=== PATIENT | male | born 1960 | race Caucasian/White ===

== ENCOUNTER 2017-06-30 13:07 | Emergency (ER) | payer MEDICAID, OTHER ==
[~2017-06-30] VITALS: Ht 167.6 cm; Wt 59.0 kg
[~2017-06-30 13:07] MED LIST: GABA100C9; HYDR-4683; MELO-41; OMEG300C5; OMEP20TA34; SIMV10TA84; TEMA15CA; TRAM50TA2
[2017-06-30 13:28] VITALS: BP 145/101
[2017-06-30] MEDS ORDERED: KETOROLAC TROMETH 60MG/2ML VIAL IM ONE (13:45)
[2017-06-30] MEDS ORDERED: TETANUS-DIPTH-ACEL PERTUSSIS 0.5ML SYRG IM ONE (13:45)
[2017-06-30] MEDS ORDERED: cefTRIAXone SOD 1,000 MG VL IM ONE (14:00)
== END 2017-06-30 14:25 | disposition home or self-care (01) ==
LOC: ER 13:07 → EDBD 13:07 → ER 14:25
DX: S91.332A Puncture wound without foreign body, left foot, initial encounter (principal); S91.352A Open bite, left foot, initial encounter; W54.0XXA Bitten by dog, initial encounter; Y93.89 Activity, other specified; Y99.8 Other external cause status; F17.210 Nicotine dependence, cigarettes, uncomplicated; Z88.0 Allergy status to penicillin; Z88.6 Allergy status to analgesic agent; Z79.891 Long term (current) use of opiate analgesic; Z79.899 Other long term (current) drug therapy; Y92.89 Other specified places as the place of occurrence of the external cause
CPT/HCPCS: 90471; 90715; 96372; 99284; J0696; J1885

== ENCOUNTER 2017-11-26 00:59 | Emergency (ER) | payer MEDICAID ==
[~2017-11-26] VITALS: Ht 167.6 cm; Wt 63.5 kg
[2017-11-26 03:02] LABS: Hematocrit 47.6 % (41.0-53.0); Hemoglobin 16.2 g/dL (13.5-17.5); Mean Corpuscular Hgb Conc. 34.2 g/dL (32.0-36.0); Mean Corpuscular Volume 84.9 fL (80.0-100.0); Platelet Count (auto) 237 10^3/uL (140-450); Red Cell Distribution Width 13.6 % (11.8-14.3)
[2017-11-26 03:06] LABS: Basophils % (manual) 0 (0.0-2.0); Blast Cells 0; Metamyelocytes % 0; Myelocytes % 0; Promyelocytes % 0; Reactive Lymphocytes 0
[2017-11-26 03:11] LABS: Urine Bacteria FEW /hpf (None Seen); Urine Blood Negative /uL (Negative); Urine Mucus FEW (None Seen); Urine Specific Gravity 1.025 (1.001-1.035); Urine WBC 3 /hpf (0 - 3)
[2017-11-26 03:13] LABS: Calcium 8.4 mg/dL (8.5-10.1); Potassium 4.2 mmol/L (3.5-5.1)
[2017-11-26 03:18] LABS: Bilirubin, Total 0.7 mg/dL (0.2-1.0); Total Protein 7.4 g/dL (6.4-8.2)
[2017-11-26 03:21] LABS: BUN/Creatinine Ratio 16.8
[2017-11-26 04:24] LABS: Band Neutrophils % (manual) 1; Eosinophils % (manual) 1 (0-7); Lymphocytes % (manual) 13 (10.0-50.0); Monocytes % (manual) 7 (0-12)
[2017-11-26] MEDS ORDERED: SODIUM CHLORIDE 0.9% 1,000 ML IV ONE ×2 (05:45→06:45)
[2017-11-26] MEDS ORDERED: PANTOPRAZOLE 40 MG/10 ML VIAL IV ONE (06:45)
[2017-11-26] MEDS ORDERED: ONDANSETRON HCL 4 MG/2 ML VIAL IV ONE (06:45)
[2017-11-26 07:31] VITALS: BP 119/57
== END 2017-11-26 08:44 | disposition home or self-care (01) ==
LOC: ER 00:59
DX: K52.9 Noninfective gastroenteritis and colitis, unspecified (principal); E78.5 Hyperlipidemia, unspecified; F17.210 Nicotine dependence, cigarettes, uncomplicated; Z88.8 Allergy status to other drugs, medicaments and biological substances; Z88.0 Allergy status to penicillin; Z79.899 Other long term (current) drug therapy
CPT/HCPCS: 36415; 71045; 74176; 80053; 81001; 83690; 83735; 85007; 85027; 96361; 96374; 96375; 99285; C9113; J2405

== ENCOUNTER 2022-11-02 17:28 | Emergency (ER) | payer MEDICAID ==
[~2022-11-02] VITALS: Ht 167.6 cm; Wt 59.0 kg
[~2022-11-02 17:28] MED LIST changes: -HYDR-4683; +HYDR-4833; -MELO-41; +MELO7.5T9; +OMEP-337; -OMEP20TA34
[2022-11-02 17:36] VITALS: BP 120/69
== END 2022-11-02 23:31 | disposition left against medical advice (07) ==
LOC: ER 17:28
DX: S61.531A Puncture wound without foreign body of right wrist, initial encounter (principal); S91.331A Puncture wound without foreign body, right foot, initial encounter; Z53.21 Procedure and treatment not carried out due to patient leaving prior to being seen by health care provider; W54.0XXA Bitten by dog, initial encounter; Y93.89 Activity, other specified; Y92.89 Other specified places as the place of occurrence of the external cause; Y99.8 Other external cause status
CPT/HCPCS: 73110; 73630